=== PATIENT | male | born 1965 | race Caucasian/White ===

== ENCOUNTER 2021-01-12 09:06 | Emergency (ER) | payer OTHER ==
[~2021-01-12] VITALS: Ht 170.2 cm; Wt 122.5 kg
[~2021-01-12 09:06] MED LIST: CIPRO500 MG PO; GLIMEPIRIDE4 MG; GLUMETZA1000 MG; LOTREL 10/40 MG1 CAP; PYRIDIUM100 M1 PO; TAMS0.4C PO; ULTRACET PO
[2021-01-12] MEDS ORDERED: ATORVASTATIN CA10 MG (09:17)
== END 2021-01-12 10:43 | disposition home or self-care (01) ==
LOC: ER 09:06
DX: S05.02XA Injury of conjunctiva and corneal abrasion without foreign body, left eye, initial encounter (principal); S05.01XA Injury of conjunctiva and corneal abrasion without foreign body, right eye, initial encounter; W45.8XXA Other foreign body or object entering through skin, initial encounter; Y93.H2 Activity, gardening and landscaping; Y92.89 Other specified places as the place of occurrence of the external cause; Y99.8 Other external cause status

== ENCOUNTER 2021-07-23 05:03 | Inpatient (IN) | payer OTHER ==
[~2021-07-23] VITALS: Ht 170.2 cm; Wt 122.5 kg
[~2021-07-23 05:03] MED LIST changes: +ATORVASTATIN CA10 MG
[2021-07-23] MEDS ORDERED: SINGULAIR10 MG (05:20)
--- NOTE | 2021-07-23 05:20 | NUR ---
SE RECIBE PACIENTE MASCULINO ALERTA Y ORIENTADO EN LAS JANE ESFERAS EL CUAL REIFERE PRESENTAR DOLOR EN EL CUADRANTE INFERIOR DERECHO EL CUAL LE RAMIREZ CAUSADO EPISODIOS DE FIEBRE. SE UBICA PACIENTE EN OBSERVACION.
--- NOTE | 2021-07-23 07:50 | NUR ---
HEATHER GOLD ORIENTA A PTE SOBRE TRATAMIENTO A SEGUIR, EL REFIERE ENTENDER. SE LE COLECTA MUESTRAS, SE CANALIZA Y SE ADMINISTRA MEDICAMENTO REY ORDEN MEDICA UTILIZANDO MEDIDAS ASEPTICAS. PENDIENTE CT PO Y U/A
== END 2021-07-25 18:53 | disposition home or self-care (01) | DRG 371 ==
LOC: ER 05:03 → SEC-K 19:26 → MEDJ 19:26 → SEC-K 20:29 → MEDJ 07-24 11:51
PROVIDERS: ADMIT Internal Medicine; ATTEND Internal Medicine
PROC: BW21YZZ Computerized Tomography (CT Scan) of Abdomen and Pelvis using Other Contrast (ICD-10-PCS; principal; 2021-07-23)
DX: K35.890 Other acute appendicitis without perforation or gangrene (principal); U07.1 COVID-19; R10.31 Right lower quadrant pain; K29.00 Acute gastritis without bleeding; I10 Essential (primary) hypertension; Z87.891 Personal history of nicotine dependence; E11.9 Type 2 diabetes mellitus without complications

== ENCOUNTER 2024-12-30 05:53 | Emergency (ER) | payer OTHER ==
[~2024-12-30] VITALS: Ht 172.7 cm; Wt 83.0 kg
[~2024-12-30 05:53] MED LIST changes: +SINGULAIR10 MG
[2024-12-30 06:01] VITALS: BP 123/65; O2SAT 99
[2024-12-30] MEDS ORDERED: ACETAMINOPHEN 500 MG GEL..CAP PO ONE ×2 (07:00→07:57)
[2024-12-30] MEDS ORDERED: HYDROCODONE/CHLORPHEN P-STIREX 5 ML ML PO ONE (07:00)
[2024-12-30] MEDS ORDERED: FAMOTIDINE/PF 20 MG in 0.9 % SODIUM CHLORIDE 8 ML IV PUSH ONE (07:00)
[2024-12-30] MEDS ORDERED: METHYLPREDNISOLONE SOD SUCC 125 MG VIAL IV ONE (07:00)
[2024-12-30] MEDS ORDERED: FAMOTIDINE/PF 20 MG/2 ML VIAL ONE (07:57)
[2024-12-30] MEDS ORDERED: METHYLPREDNISOLONE SOD SUCC 125 MG VIAL ONE (07:57)
[2024-12-30 09:16] LABS: URINE APPEARANCE Clear; URINE BILIRRUBIN Small (NEGATIVE); URINE BLOOD Small; URINE COLOR Dark Yellow; URINE GLUCOSE Negative (NEGATIVE); URINE KETONE Trace (NEGATIVE); URINE LEUKOCYTE Trace; URINE NITRATE Negative; URINE PROTEIN Trace (NEGATIVE); URINE UROBILINOGEN 1.0 E.U./dl
[2024-12-30 09:25] LABS: URINE BACTERIA 11.9 uL (0.0-1933); URINE EPITHELIAL CELLS 7.6 uL (0.0-38.8); URINE RBC 47.9 uL (0.0-20.8); URINE WBC 16.1 uL (0.0-23.2)
[2024-12-30 09:29] LABS: BASO % 0.9 % (0.1-1.2); EOS # 0.48 (0.04-0.54); EOS % 5.3 % (0.7-7.0); LYMPH # 1.27 (1.18-3.74); LYMPH % 14.0 % (19.3-53.1); MEAN PLATELET VOLUME 12.20 fl (9.4-12.4); MONO # 0.51 (0.24-0.82); MONO % 5.6 % (4.7-12.5); NEUT # 6.67 (1.56-6.13); NEUT % 73.6 % (34.0-71.1); RED CELL DISTRIBUTION WIDTH 14.4 % (11.6-14.4)
[2024-12-30 09:31] LABS: URINE CAST 0.00 uL (0.0-1.40)
[2024-12-30 09:32] LABS: COVID-19 AG NEGATIVE (NEGATIVE)
[2024-12-30 10:27] LABS: ALT/SGPT 474.0 U/L (12-78); AST/SGOT 298.0 U/L (15-37); BILIRUBIN TOTAL 0.92 mg/dL (0.3-1.2); BUN CREA RATIO 24.0 (7.0-25.0); CREATININE SERUM 0.68 mg/dL (0.70-1.30); GFR 119.35; GLOBULINA 3.6 G/DL (2.4-3.5); GLUCOSE FASTING 114.0 mg/dL (65-100); OSMOLALITY SERUM 281.0 MOSM/KG (275-295)
== END 2024-12-30 13:47 | disposition home or self-care (01) ==
LOC: ER 05:53
PROVIDERS: General Practice
DX: B34.9 Viral infection, unspecified (principal); Z20.822 Contact with and (suspected) exposure to COVID-19
CPT/HCPCS: 36415; 71046; 96365; 99283; J3490